=== PATIENT | male | born 1950 ===

== ENCOUNTER 2018-04-12 06:17 | Day surgery (SDC) | payer OTHER ==
[2018-04-12] VITALS (10 sets, daily range): BP systolic 121–148; BP diastolic 67–72
[~2018-04-12] VITALS: Ht 162.6 cm; Wt 101.2 kg
[2018-04-12] MEDS ORDERED: GLIPIZIDE10 MG PO (06:57)
[2018-04-12] MEDS ORDERED: LUMIGAN2.5 ML BOTH EYES (06:57)
[2018-04-12] MEDS ORDERED: NORVASC5 MG ORAL (06:57)
[2018-04-12] MEDS ORDERED: TAMSULOSIN HCL0.4 MG ORAL (06:57)
[2018-04-12] MEDS ORDERED: METFORMIN HCL1000 M1 ORAL (06:57)
[2018-04-12] MEDS ORDERED: ATORVASTATIN CA20 MG ORAL (06:57)
[2018-04-12] MEDS ORDERED: PANTOPRAZOLE SO40 MG ORAL (06:57)
[2018-04-12] MEDS ORDERED: MYRBETRIQ25 MG PO (06:57)
[2018-04-12] MEDS ORDERED: COMBIGAN EYE DRO5 ML OP (06:57)
[2018-04-12] MEDS ORDERED: LOSARTAN POTASS25 M1 PO (06:57)
[2018-04-12] MEDS ORDERED: LR 1000ml 1,000 ML IVLG SCH ×2 (07:00→08:24)
[2018-04-12] MEDS ORDERED: Propofol 200mg/20ml IV ONE ×2 (07:30→08:00)
[2018-04-12] MEDS ORDERED: Midazolam 2mg/2ml Inj ONE (07:30)
[2018-04-12] MEDS ORDERED: fentaNYL 100 mcg/2 mL IV ONE (07:30)
[2018-04-12] MEDS ORDERED: LR 1000ml ONE (07:30)
--- NOTE | 2018-04-12 07:55 | Anethesia Preoperative Eval ---
Anesthesia Pre-op PMH/ROS General Date of Evaluation: Apr 12, 2018 Time of Evaluation: 07:52 Anesthesiologist: Dandre ASA Score: ASA 3 Mallampati Score Class I : Soft palate, uvula, fauces, pillars visible Class II: Soft palate, uvula, fauces visible Class III: Soft palate, base of uvula visible Class IV: Only hard plate visible Mallampati Classification: Class III Surgeon: Aym Diagnosis: Abdominal pain Surgical Procedure: EGD Colonoscopy Anesthesia History: none Social History: smoking - h/o Family History: no anesthesia problems Allergies: Coded Allergies: No Known Allergies (Unverified , 04/12/18) Medications: see eMAR Past Medical History Cardiovascular: Reports: HTN; Denies: CAD, HI, valve dz, arrhythmia, other Pulmonary: Reports: LEXY; Denies: asthma, COPD, other Gastrointestinal/Genitourinary: Reports: GERD; Denies: CRI, ESRD, other Neurologic/Psychiatric: Denies: dementia, CVA, depression/anxiety, TIA, other Endocrine: Reports: DM - stable on pills; Denies: hypothyroidism, steroids, other HEENT: Denies: cataract (L), cataract (R), glaucoma, PAMUNKEY (L), PAMUNKEY (R), other Hematology/Immune: Denies: anemia, DVT, bleeding disorder, other Musculoskeletal/Integumentary: Denies: OA, RA, DJD, DDD, edema, other Other: obesity PMH Narrative: as above PSxH Narrative: see H&P Anesthesia Pre-op Phys. Exam Physician Exam Last Vital Signs Date Time Temp Pulse Resp B/P (MAP) Pulse Ox O2 Delivery O2 Flow Rate FiO2 04/12/18 06:44 97.9 78 18 148/67 97 Room Air 97.9 Constitutional: NAD Neurologic: CN 2-12 intact Cardiovascular: RRR, no M/R/G Respiratory: CTA Gastrointestinal: other - obesity Airway Exam Mallampati Score: Class III MO: limited Neck: short ROM: limited Teeth: missing Dentures: no upper, no lower Anesthesia Pre-op A/P Labs see chart Accucheck 127 at admission Studies Pre-op Studies: EKG - NSR Risk Assessment & Plan Assessment: ASA 3 Plan: MAC Status Change Before Surgery: No Pre-Antibiotics Drug: none Justyn Amos MD Apr 12, 2018 07:55
--- NOTE | 2018-04-12 08:16 | Pre-Procedure Note/Attestation ---
Pre-Procedure Note/Attestation Complete Prior to Procedure Planned Procedure: not applicable Procedure Narrative: EGD/Colon Indications for Procedure Pre-Operative Diagnosis: Hematochezia Attestation I attest that I discussed the nature of the procedure; its benefits; risks and complications; and alternatives (and the risks and benefits of such alternatives ), prior to the procedure, with the patient (or the patient's legal title insurance sales representative). I attest that, if there was a reasonable possibility of needing a blood transfusion, the patient (or the patient's legal title insurance sales representative) was given the [facility] standardized written summary, pursuant to the Bryce Kurtis Blood Safety Act ([place] Health and Safety Code # 1645, as amended). I attest that I re-evaluated the patient just prior to the surgery and that there has been no change in the patient's H&P, except as documented below: Gabo Acevedo MD Apr 12, 2018 08:16
[2018-04-12] MEDS ORDERED: fentaNYL 100 mcg/2 mL IV PRN (08:23)
--- NOTE | 2018-04-12 08:52 | Immediate Post-Op Evaluation ---
Immediate Post-Op Evalulation Immediate Post-Op Evalulation Procedure: EGD Colonoscopy Date of Evaluation: Apr 12, 2018 Time of Evaluation: 08:51 IV Fluids: 400 Blood Products: none Estimated Blood Loss: none Urinary Output: none Blood Pressure Systolic: 118 Blood Pressure Diastolic: 68 Pulse Rate: 73 Respiratory Rate: 20 O2 Sat by Pulse Oximetry: 98 Temperature (Fahrenheit): 97.6 Pain Score (1-10): 1 Nausea: No Vomiting: No Complications NONE Patient Status: awake, patent, none Hydration Status: adequate Justyn Amos MD Apr 12, 2018 08:52
--- NOTE | 2018-04-12 09:09 | Short Stay Surgery H&P ---
History of Present Illness History of Present Illness Chief Complaint See typed H&P HPI Edcameron Christianson is a 67 year old male who was admitted on for Blood In Stool Patient History Allergies: Coded Allergies: No Known Allergies (Unverified , 04/12/18) Medication History Scheduled Amlodipine Besylate (Norvasc), 5 MG ORAL DAILY, (Reported) Atorvastatin Calcium* (Atorvastatin Calcium*), 20 MG ORAL BEDTIME, (Reported) Bimatoprost (Lumigan), 1 DROP BOTH EYES DAILY, (Reported) Brimonidine Tartrate/Timolol (Combigan Eye Drops), 5 ML OP BID, (Reported) Glipizide (Glipizide), 10 MG PO BID, (Reported) Losartan Potassium (Losartan Potassium), 50 MG PO DAILY, (Reported) Metformin Hcl* (Metformin Hcl*), 1,000 MG ORAL BID, (Reported) Mirabegron (Myrbetriq), 25 MG PO BEDTIME, (Reported) Pantoprazole* (Pantoprazole*), 40 MG ORAL DAILY, (Reported) Tamsulosin Hcl (Tamsulosin Hcl*), 0.4 MG ORAL BID, (Reported) Physical Exam Vital Signs Last Vital Signs Date Time Temp Pulse Resp B/P (MAP) Pulse Ox O2 Delivery O2 Flow Rate FiO2 04/12/18 09:00 68 18 128/68 95 Room Air 04/12/18 08:55 3 04/12/18 08:52 207.7 Plan Attestation Are the patient's medical conditions optimized for surgery? Gabo Acevedo MD Apr 12, 2018 09:09
--- NOTE | 2018-04-12 11:46 | 48 Hour Post Anesthesia Eval ---
Post Anesthesia Evaluation Procedure: EGD Colonoscopy Date of Evaluation: Apr 12, 2018 Time of Evaluation: 11:45 Blood Pressure Systolic: 136 0: 72 Pulse Rate: 68 Respiratory Rate: 20 Temperature (Fahrenheit): 97.6 O2 Sat by Pulse Oximetry: 98 Airway: patent Nausea: No Vomiting: No Pain Intensity: 1 Hydration Status: adequate Cardiopulmonary Status: stable Mental Status/LOC: patient returned to baseline Follow-up Care/Observations: n/a Post-Anesthesia Complications: none Follow-up care needed: ready to discharge Justyn Amos MD Apr 12, 2018 11:46
--- NOTE | 2018-04-12 18:35 | Endoscopy Procedure Note ---
Endoscopy Procedure Note General Indication for Procedure: GIB Procedures Performed: EGD, colonoscopy Operative Findings/Diagnosis: E C Specimen: yes Pt Tolerated Procedure Well: Yes Estimated Blood Loss: none Anesthesia Anesthesiologist: see report Anesthesia: MAC Medications Medication Given: see anesthesia record Inserted Devices Implant(s) used?: No GI Core Measures 50 yrs or older w/o bx or poly: Not Applicable 10yrs. F/U not recommended: Not Applicable If not recommended, why?: Gabo Acevedo MD Apr 12, 2018 18:35
--- NOTE | 2018-04-12 18:36 | Brief Operative Note ---
Immediate Post Operative Note Operative Note Chief Complaint: GIB Pre-op Diagnosis: Hematochezia Procedure: E C Post-op Diagnosis: GIB Surgeon: Kristina Anesthesiologist: see report Anesthesia: MAC Specimen: yes Complications: none Condition: stable Fluids: recorded Estimated Blood Loss: none Drains: none Implant(s) used?: No Gabo Acevedo MD Apr 12, 2018 18:36
--- NOTE | 2018-04-13 01:00 | Procedure Note ---
DATE OF PROCEDURE: 04/12/2018 PROCEDURE: Upper gastrointestinal endoscopy with biopsy as well as colonoscopy. SURGEON: Gabo Acevedo M.D. ANESTHESIA: Please see the separate anesthesiologist notes for details. PRE-ENDOSCOPIC DIAGNOSIS: Gastrointestinal bleeding. POST-ENDOSCOPIC DIAGNOSES: 1. Shereen esophagitis. 2. Status post random biopsy of the normal antrum. 3. Mild diverticulosis. 4. Mild internal hemorrhoids. DESCRIPTION OF PROCEDURE: The procedure, its risks, indications, alternatives, and possible complications including but not limited to bleeding, infection, perforation, , and anesthesia complications were explained to the patient and informed consent was obtained. The patient was then sedated in the left lateral decubitus position and a diagnostic upper endoscope was introduced through the oropharynx and advanced to the duodenum without difficulty. The endoscope was then gradually withdrawn and the mucosa examined carefully. Examination of the upper gastrointestinal mucosa revealed Shereen esophagitis. Random biopsy of the normal antrum was sent to pathology for review. The endoscope was removed and rectal exam was done. A colonoscope was introduced in the rectum and advanced to the cecum without difficulty. The cecum was identified by the appearance of the ileocecal valve. The colonoscope was then gradually withdrawn and the mucosa examined carefully. Examination of the colonic mucosa revealed mild diverticulosis and mild internal hemorrhoids. No polyps or masses were identified. The colonoscope was removed and the patient was sent to recovery in good condition. COMPLICATIONS: None. RECOMMENDATIONS: 1. Follow up biopsy results. 2. Outpatient followup. 3. Nystatin swallow 5 mL after meals and at bedtime for 10 days. Thank you for asking me to participate in the care of this patient. Gabo Acevedo M.D. DR: SERGIO JOB#: [id number] CC:
== END 2018-04-12 10:00 | disposition home or self-care (01) ==
LOC: GAS 06:17
DX: K21.0 Gastro-esophageal reflux disease with esophagitis (principal); B37.81 Candidal esophagitis; K57.90 Diverticulosis of intestine, part unspecified, without perforation or abscess without bleeding; K64.8 Other hemorrhoids; I10 Essential (primary) hypertension; E11.9 Type 2 diabetes mellitus without complications; E78.00 Pure hypercholesterolemia, unspecified; K21.9 Gastro-esophageal reflux disease without esophagitis; G47.33 Obstructive sleep apnea (adult) (pediatric); E66.9 Obesity, unspecified; Z68.38 Body mass index [BMI] 38.0-38.9, adult
CPT/HCPCS: 43239; 45378; 82962; J2250; J2704; J3010; J7120